=== PATIENT | female | born 1995 | race Caucasian/White ===

== ENCOUNTER 2022-11-23 09:10 | Observation (INO) ==
--- NOTE | 2022-11-09 15:02 | Anesthesiology Consultation ---
Date of Service November 09, 2022 Assessment & Plan (1) Encounter for pre-operative examination: Plan - check urine test STAT am DOS. - COVID screening: Per clinical assessment manager on 11/09/2022: Travel screen negative, no known COVID-19 positive contacts or current COVID-19 related symptoms in past 2 weeks. To surgeon's discretion if preop COVID testing is needed. Chart Review Chart Review: Acceptable Risk for Surgery and Patient NOT seen in Pre Admission Testing History Surgery Operation Date: 11/23/22 07:30 Proposed Procedures p Bilateral Non-cancerous Mastectomy with Liposuction - Millicent Foster MD Height/Weight Height: 5 ft 3 in Weight: 56.699 kg Allergies Allergy/AdvReac Type Severity Reaction Status Date / Time No Known Allergies Allergy Verified 11/09/22 13:30 Medications Home Medications Medication Instructions Recorded Confirmed Last Taken testosterone cypionate 200 mg/mL 30 mg subcut Q7D 06/22/22 11/09/22 Unknown intramuscular oil (Depo-Testosterone) cephalexin 500 mg capsule 500 mg PO TID #21 caps 11/03/22 11/03/22 Unknown oxycodone-acetaminophen 5 mg-325 1 tab PO Q4H PRN pain #14 tabs 11/03/22 11/03/22 Unknown mg tablet (Endocet) albuterol sulfate 90 mcg/actuation 1 inh inhalation QID PRN Shortness 11/09/22 11/09/22 Unknown aerosol inhaler Of Breath Or Wheezing Past Medical History Medical History (Updated 11/09/22 @ 15:00 by Heaven Peters PA-C) Anxiety and depression Asthma rarely uses inhaler Bipolar 1 disorder no meds GERD (gastroesophageal reflux disease) Past Family History Family History Mother COPD (chronic obstructive pulmonary disease) Past Surgical History Surgical History History of hand surgery pinky finger History of tonsillectomy Social History Smoking Status: Former smoker tobacco type: cigarettes Smoking cigarettes per day: quit 09/08/22 Do You Dip or Chew Tobacco: No Hx Alcohol Use: No Hx Substance Use: No substance use type: does not use Lab Results Anesthesia Preop Results Results Anesthesia Widget: WBC 11.86 K/ul (4.8-10.8) H 11/03/22 Hgb 16.5 g/dl (12.0-16.0) H 11/03/22 Hct 48.6 % (37.0-47.0) H 11/03/22 Plt 246 K/uL (130-400) 11/03/22 Na 139 mmol/L (136-145) 11/03/22 K 3.7 mmol/L (3.5-5.1) 11/03/22 Cl 105 mmol/L (98-107) 11/03/22 CO2 27 mmol/L (21-32) 11/03/22 BUN 15 mg/dl (6-23) 11/03/22 Creat 0.84 mg/dl (0.6-1.2) 11/03/22 Glucose Level 94 mg/dl (70-99(Fasting)) 11/03/22 PT 11.3 Seconds (9.0-12.0) 11/03/22 INR 1.0 (0.9-1.1) 11/03/22 Testing Stress Test Date: 11/26/21 Exercise METS 13.8 MPHR 87% Normal test
[~2022-11-23 09:10] MED LIST: DEXAMETHASONE SOD INJ 4 MG/ML VIAL ONE; LIDOCAINE 2% 2 ML VIAL/AMP(20MG/ML) INFIL ONE; LR 15ML/HR IV SCH; MIDAZOLAM HCL 1 MG/ML 2ML VIAL ONE; PROPOFOL IV EMULSION 10 MG/ML 20 ML VIAL IV ONE; ROCURONIUM BROMIDE 10 MG/ML 5 ML VIAL IV ONE; ceFAZolin 2000MG 2,000 MG/15 ML SYR IV SCH; fentaNYL citrate PF 100 MCG/2 ML VIAL ONE
--- NOTE | 2022-11-23 10:26 | History & Physical Bridge Note ---
Date of Service November 23, 2022 History & Physical Bridge Note I have examined the patient, reviewed the History & Physical and in the interval since the performance of the History & Physical I have noted the following changes of clinical significance: no changes noted
[2022-11-23] MEDS ORDERED: BUPIVACAINE 0.25% PF 30 ML VIAL ONE (10:43)
[2022-11-23] MEDS ORDERED: LIDOCAINE 1%/EPINEPHRINE 1:100,000 20 ML VIAL ONE (10:43)
[2022-11-23] MEDS ORDERED: LIDOCAINE 1% LOCAL 20 ML VIAL ONE (10:44)
[2022-11-23] MEDS ORDERED: KETAMINE 50 MG/5 ML SYRINGE ONE (11:18)
[2022-11-23] MEDS ORDERED: HYDROmorphone INJ 2 MG/ML SYR/VIAL ONE (11:33)
--- NOTE | 2022-11-23 13:53 | Operative Report ---
PG Post Operative Report Pre & Post Diagnosis Operation Date: 11/23/22 10:50 Pre-Op Diagnosis: Gender Dysphoria in Adult Post-Op Diagnosis: Gender Dysphoria in Adult I identified the patient and participated in the time-out.: Yes Procedure Operation Date: 11/23/22 10:50 Actual Procedures p Bilateral Non-Cancerous Mastectomy with Free Nipple Graft(Bilateral) - Millicent Foster MD Surgeon Millicent Foster MD Language Path Ana Salter PA-C Estimated Blood Loss 10 Findings Consistent with Post-Op Diagnosis none Specimens bilateral breast tissue to pathology Drains [id number] Anesthesia Type General Complications none Indications desiring gender affirming mastectomy Description of Procedure The risks benefits and alternatives of the procedure were explained to the patient who agreed and signed consent. He was identified and marked in the preoperative holding area. I marked the incisions about 3 cm superior to the inframammary folds and marked the superior incision in an elliptical fashion in order to provide a horizontal scar pattern if possible. Nipple site was confirmed with the patient. He was brought to the operating room where he was placed under general anesthesia in supine position without incident. Surgical site was prepped and draped sterilely. A time out procedure was performed. 1% lidocaine with epinephrine was used to anesthetize the planned incisions. Nipple areolar complex grafts were harvested. I elected to use a 25 mm cookie cutter to size an areolar graft. It was harvested using a 15 blade scalpel and was defatted using a curved iris scissor.A 15 blade scalpel was used to harvest a separate nipple graft. They were placed on the back table in a saline soaked sponge until I was ready to place the grafts. I began by making the inferior incision using 15 blade scalpel. Incision was deepened through dermis using electrocautery, and deepened down to the chest wall. I began raising the breast off of underlying pectoralis fascia, divided the breast in the midline and then temporarily sutured it to the inframammary fold to confirm wound closure would be possible. I then marked the superior incision, which was made with a 15 blade scalpel and deepened using electrocautery. The breast was passed off as specimen. Superiorly, breast was undermined to the clavicle and the superior flap was further thinned until it was of uniform thickness, approximately 1 cm in thickness and equal to the thickness of the abdominal subcutaneous tissue. Throughout dissection, hemostasis was achieved using the bovie. I did perform some additional undermining inferiorly along the inframammary fold to facilitate closure and disrupt the inframammary fold. Prior to closure, the wound was irrigated, examined for hemostasis. A 15 Greek Josh drain was placed in the wound bed and brought out through a separate stab incision laterally.Deep dermis was closed using 2-0 Vicryl interrupted sutures, superficial dermis closed using 2-0 PDO running Quill suture, and subcuticular wound closure was performed using 3-0 Monocryl. Following closure, the nipple areolar complex was inset. I made a circular incision at the lateral border of pectoralis and just superior to the incision. This was de-epithelialized. The nipple areolar graft was inset first using 5-0 plain gut suture. An identical procedure was performed on the right side. The graft was inset using 5-0 fast absorbing suture. 6 4-0 silk tie over bolster sutures were placed, and a Xeroform and cotton bolster was placed. Dry dressings and drain sponges were placed. A binder was placed. Procedure was tolerated well. Patient was awakened and transferred to the recovery room in satisfactory condition. Ana Salter PA-C was present and scrubbed throughout the entire procedure. She assisted in retraction, hemostasis, preparation of the nipple grafts and simultaneous wound closure. I attest to the content of the Intraoperative Record and any orders documented therein. Any exceptions are noted below.
--- NOTE | 2022-11-23 13:54 | Post Operative Brief Note ---
PG Immediate Post Op with CF Date of Surgery November 23, 2022 Pre & Post Diagnosis Operation Date: 11/23/22 10:50 Pre-Op Diagnosis: Gender Dysphoria in Adult Post-Op Diagnosis: Gender Dysphoria in Adult I identified the patient and participated in the time-out.: Yes Procedure Operation Date: 11/23/22 10:50 Actual Procedures p Bilateral Non-Cancerous Mastectomy with Free Nipple Graft(Bilateral) - Millicent Foster MD Surgeon Millicent Foster MD Rug Cleaner Ana Salter PA-C Estimated Blood Loss 10 Findings Consistent with Post-Op Diagnosis Specimens Specimen Description: A) Left breast B) Right breast Drains Eduardo-Ya Drain
[2022-11-23] MEDS ORDERED: SUGAMMADEX SODIUM 200 MG/2 ML VIAL IV ONE (14:00)
[2022-11-23] MEDS ORDERED: ALBUTEROL HFA 8 GM INHALER INH ONE (14:08)
[2022-11-23] MEDS ORDERED: ALBUT/IPRATROP 3MG/0.5MG NEB 3 ML VIAL NEB STA (14:20)
[2022-11-23] MEDS ORDERED: ONDANSETRON INJ 2 MG/ML 2 ML VIAL IV PRN ×2 (14:29→15:53)
[2022-11-23] MEDS ORDERED: HYDROmorphone INJ 2 MG/ML SYR/VIAL IV PRN (14:29)
[2022-11-23] MEDS ORDERED: ePHEDrine sulfate 50 MG/ML AMP IV PRN (14:29)
[2022-11-23] MEDS ORDERED: PROMETHAZINE HCL 12.5 MG in SODIUM CHLORIDE 0.9% 50 ML IV PRN ×2 (14:29→15:53)
[2022-11-23] MEDS ORDERED: ATROPINE SULFATE 0.1 MG/ML 10ML SYR IV PRN (14:29)
[2022-11-23] MEDS: fentaNYL citrate PF 100 MCG/2 ML VIAL IV PRN ×4 (14:36→15:00)
--- NOTE | 2022-11-23 15:28 | Anesthesiology Progress Note ---
Date of Service November 23, 2022 Anesthesia Post Procedure Vital Signs Vital Signs: Temp Pulse Pulse Resp BP Pulse Ox O2 Del Method 11/23/22 15:10 71 18 104/67 95 Nasal Cannula 11/23/22 15:00 92 H 15 117/71 95 Nasal Cannula 11/23/22 14:40 88 12 125/76 96 Nebulizer 11/23/22 14:50 96 H 15 134/77 95 Room Air 11/23/22 14:30 89 15 136/88 99 Oxymask 11/23/22 14:23 36.7 C 104 H 15 123/101 H 93 Oxymask 11/23/22 14:29 96 H 18 96 Oxymask 11/23/22 10:05 36.8 C 67 20 134/86 98 Room Air O2 Flow Rate 11/23/22 15:10 2 11/23/22 15:00 2 11/23/22 14:40 8 11/23/22 14:50 11/23/22 14:30 8 11/23/22 14:23 8 11/23/22 14:29 9 11/23/22 10:05 Pain Intensity Bilateral Chest: Pain Intensity: 2 Transfer of Care Handoff Completed per policy Notes Mental Status: alert / awake / arousable and participated in evaluation Patient Amnestic to Procedure: Yes Nausea / Vomiting: adequately controlled Pain: adequately controlled Airway Patency, RR, SpO2: stable & adequate BP & HR: stable & adequate Hydration State: stable & adequate Anesthetic Complications: no major complications apparent
[2022-11-23] MEDS ORDERED: oxyCODONE/ACETAMINOPHEN 5mg/325mg TAB PO PRN ×2 (15:53)
[2022-11-23] MEDS ORDERED: diphenhydrAMINE Capsule 25 MG CAP PO PRN (15:53)
[2022-11-23] MEDS ORDERED: MoRPHine SULFATE 2 MG/ML CARP IV PRN (15:53)
[2022-11-23] MEDS ORDERED: diphenhydrAMINE 50 MG/ML VIAL IV PRN (15:53)
[2022-11-23] MEDS ORDERED: LORazepam 0.5 MG TAB PO PRN (15:53)
[2022-11-23] MEDS ORDERED: ACETAMINOPHEN 325 MG TAB PO PRN (15:53)
[2022-11-23] MEDS ORDERED: MoRPHine SULFATE 4 MG/ML 1 ML CARP\\VIAL IV PRN (15:53)
[2022-11-23] MEDS: D5W AND 1/2NSS + 20MEQ KCL 20 MEQ/1,000 ML BAG IV SCH (16:39)
[2022-11-23] MEDS: ceFAZolin 2000MG 2,000 MG/15 ML SYR IV SCH ×2 (18:11→23:27)
[2022-11-23] MEDS ORDERED: Nursing to Pharmacy Communication SCH (20:15)
[2022-11-23] MEDS ORDERED: ALBUTEROL HFA 8 GM INHALER INH SCH (21:00)
[2022-11-24] MEDS: D5W AND 1/2NSS + 20MEQ KCL 20 MEQ/1,000 ML BAG IV SCH (05:57)
--- NOTE | 2022-11-24 07:18 | Surgery Progress Note ---
Date of Service November 24, 2022 Assessment & Plan (1) S/P mastectomy, bilateral: Plan: Doing well POD#1 s/p bilateral non-cancerous mastectomy. D/C home today, office follow-up tomorrow. Post-op restrictions reviewed. Admission and Anticipated Discharge Date Admission Date: November 23, 2022 Subjective Luke is resting comfortably in bed, pain is well controlled. Physical Exam Physical Exam: drains with 20cc serosang output, abd binder and bolsters in place, no drainage on gauze dressings Results & Data Vital Signs (Past 12 Hours) Vital Signs Temp Pulse Resp BP Pulse Ox O2 Del Method 11/24/22 03:24 36.6 C 67 16 104/64 97 Room Air 11/23/22 22:23 36.7 C 88 16 104/58 L 97 Room Air 11/23/22 20:23 18 97 Room Air PG Care Time/CCT Total # of Minutes Spent Total Time Spent with Patient: Total time spent is greater than 50% in coordination of care (as documented) at patient's floor/unit and/or counseling patient: Coding Level of Care Code 04092 Post Operative Follow-Up Diagnoses S/P mastectomy, bilateral Z90.13
[2022-11-24] MEDS ORDERED: MULTIVITAMIN TAB PO SCH (09:00)
--- NOTE | 2022-11-24 11:58 | Discharge Summary ---
Date of Service November 24, 2022 Admission HPI Per Admitting Provider Patient with history of gender dysphoria. Admission Exam Per Admitting Provider see admission H&P Principal Diagnosis Gender dysphoria Discharge Exam drains with 20cc serosang output, abd binder and bolsters in place, no drainage on gauze dressings Discharge Data Allergies Allergy/AdvReac Type Severity Reaction Status Date / Time No Known Allergies Allergy Verified 11/23/22 10:00 Procedures Performed Operation Date: 11/23/22 10:50 Actual Procedures p Bilateral Non-Cancerous Mastectomy with Free Nipple Graft(Bilateral) - Millicent Foster MD Hospital Course (1) S/P mastectomy, bilateral: Patient presented to [facility] with history of gender dysphoria. He was taken to the OR and underwent bilateral mastectomy with free nipple gratfs. There were no intraoperative complications. He was taken to recovery and transferred to med/surg for observation. On POD#1, he was feeling well. He was tolerating a regular diet and ambulating. On exam, his vitals were stable. His incisions were CDI and bolsters in place. He was discharged home with instructions to follow-up in the office in one day. Total Time Total Time Spent Total Time Spent (In Minutes): 20 Total Time Includes: Examination of the Patient, Medication Reconciliation and Communication With Other Providers Discharge Plan Discharge Items Patient Disposition: Home - Self-Care Reason For Visit: POST-OP Discharge Diagnosis: s/p bilateral non-cancerous mastectomy Activity: As commented below Non-emergency contact: Surgeon Call non-emergency contact if: you have any medication questions, your pain is not controlled, you have a fever, your wound has increased redness and your wound has increased drainage Follow-up/Referrals: Millicent Foster MD [Physician] - 11/25/22 11:00 am Faisal Vallejo MD [Primary Care Provider] - Diet: Regular Addtl Attending Provider Instructions: ACTIVITY RECOMMENDATIONS: __Normal activities _x_No bending, lifting or straining. Keep arms at shoulder height or below __No driving __Driving allowed when you are off pain medications _x_Walking permitted __You should have help at home for ___ days DRESSINGS: __No dressings required _x_Keep dressings dry/in place until first office visit. Binder must stay on at all times __Remove dressings ___ and leave dressings off __Apply ice ___ days __Remove dressings and reapply garment __Apply antibiotic ointment (Bacitracin, Neosporin, etc) to wounds 3-4 times/day for 10 days BATHING: x__Keep dressings dry _x_Sponge bathing permitted away from surgical dressings __Showering permitted _x_No swimming, hot tubs or soaking in a tub MEDICATIONS: Resume previous medications unless instructed otherwise by your surgeon. _x_Do not use aspirin, Motrin, Advil or Ibuprofen as these may promote bleeding. Please use Tylenol. _x_Prescription(s) provided: pain medication and antibiotics were provided at your last office visit- start antibiotics once home OTHER INSTRUCTIONS: _x_Record drain output 2-3 times per day SPECIAL CARE INSTRUCTIONS: * It is normal to have a mild fever after surgery. If your temperature is higher than 101.5 degrees F, please call the office at [phone]. * Constipation is a typical side effect of pain medication. An [id number] stool softener will help relieve this. * Leaking around surgical drains may occur and should not cause concern. Sometimes these drains become clogged. If this happens, remove the bulb and milk the clot out of the tube, then replace the bulb. * Drainage from wounds after liposuction is normal and should be expected. Garments will become soiled. You should protect furniture and bedding. This drainage should mostly subside within 2-3 days. Leave garments in place unless instructed to remove them. * If you have unusual drainage from a wound or are concerned you have an infection or have any questions or concerns, please call the office at [phone]. FOLLOW UP VISIT: If not already scheduled, please call the office, , when you return home after surgery to schedule an appointment to be seen in __1_ days. Pending Studies at Discharge: Yes Stand-Alone Forms: My [employer], Smoking Cessation Medications and DC Order Prescriptions: Continued oxycodone-acetaminophen [Endocet] 5-325 mg tablet 1 tab PO Q4H PRN (Reason: pain) Qty: 14 0RF Rx Instructions: initial therapy Dr. Foster [id number] testosterone cypionate [Depo-Testosterone] 200 mg/mL oil 30 mg subcut Q7D cephalexin 500 mg capsule 500 mg PO TID Qty: 21 0RF Rx Instructions: postop albuterol sulfate 90 mcg/actuation Hfa Aerosol Inhaler 1 inh INHALATION QID PRN (Reason: Shortness Of Breath Or Wheezing) Discharge Orders: Discharge Order (Routine); Ordered 11/24/22 Ordered By: Ana Salter Admission Data Admit Date/Time: 11/23/22 14:17 Attending Provider: Millicent Foster Admit Provider: Millicent Foster Primary Care Provider: Faisal Vallejo Other Interventions: Discharge Summary Assessment (RN) Last Done: 11/24/22 08:23 Coding Level of Care Code 38429 OBS Care - Discharge Diagnoses S/P mastectomy, bilateral Z90.13
== END 2022-11-24 09:12 | disposition home or self-care (01) ==
LOC: ASU 09:10 → 3E 09:10